=== PATIENT | male | born 1980 | race Caucasian/White ===

== ENCOUNTER → 2020-06-17 | Outpatient (CLI) | payer OTHER ==
[~2020-06-17] MED LIST: LEVAQUIN 5500 MG/TA1 PO; ZOFRAN ODT4 MG PO
== END ==
LOC: COL.RAD 07:06
DX: S83.511A Sprain of anterior cruciate ligament of right knee, initial encounter (principal); S80.11XA Contusion of right lower leg, initial encounter; M25.461 Effusion, right knee